=== PATIENT | female | born 1980 | race Caucasian/White ===

== ENCOUNTER 2018-08-22 17:40 | Inpatient (IN) | payer OTHER ==
[2018-08-22] MEDS: Lactated Ringer's 1,000 ML IV SCH ×2 (18:10→20:24)
[2018-08-22] MEDS ORDERED: NS / Oxytocin 40 units/1000ml 1,000 ML IV PRN (18:28)
[2018-08-22] MEDS ORDERED: Lidocaine 1% (PF) 30 ML VIAL SC PRN (18:28)
[2018-08-22] MEDS ORDERED: Docusate 100 MG CAP PO PRN (18:28)
[2018-08-22] MEDS ORDERED: Promethazine HCl 25 MG/ML VIAL IM PRN ×2 (18:28→20:19)
[2018-08-22] MEDS ORDERED: Acetaminophen 500 MG TAB PO PRN (18:28)
[2018-08-22] MEDS ORDERED: Ondansetron PF 4 MG/2 ML Vial IVP PRN ×2 (18:28→20:19)
[2018-08-22] MEDS ORDERED: Ibuprofen 800 MG TAB PO PRN (18:28)
[2018-08-22 18:29] VITALS: BMI 30.7
--- NOTE | 2018-08-22 18:41 | PDOC.FPROB ---
FMR OB H&P: HPI - History of Present Illness Chief Complaint: Contractions Indentification: 38 year old at 40.3 wks History of Present Illness: 38 year old at 40.3 wks by LMP/18.4 wk sono presents with contractions since 8 PM yesterday evening. She denies LoF, vaginal bleeding, vaginal discharge. Endorses movement. 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 denies: fever/chills, weight/appetite/sleep changes Eyes: denies: double vision, scotomas ENT: reports: nasal congestion, rhinorrhea, sore throat Cardiovascular: denies: chest pain, palpitation, edema Respiratory: reports: cough, congestion. denies: shortness of breath Gastrointestinal: denies: abdominal pain, nausea, vomiting, diarrhea Genitourinary (Female): reports: contractions. denies: vaginal discharge, vaginal pain, vaginal bleeding Musculoskeletal: denies: pain Integumentary: denies: rash, lesions Hematologic/Lymphatic: denies: prolonged or excessive bleeding Psychological: reports: depression, anxiety FMR OB H&P: Physical Exam - Physical Exam General: NAD, awake, alert and oriented HEENT: grossly normal vision, grossly normal hearing Neck: supple Heart: pulses present, no edema General: no respiratory distress Abdomen: soft, gravid, non-tender Musculoskeletal: pulses present Neurological: no tremor, no focal deficit Skin: no rash, capillary refill <2 seconds Lymphatic: no unusual bruising or bleeding Psychiatric: intact recent and remote memory, good judgement and insight, normal mood and affect - Pelvic Exam SVE: /-3 at appx 6:30 by nurse Presentation: cephalic FMR OB H&P: A/P - Problem List (1) Post-dates Current Visit: Yes Status: Acute Code(s): O48.0 - POST-TERM (2) Active labor Current Visit: Yes Status: Acute Code(s): [id number] - Assessment and Plan: 38 year old at 40.3 wks presents with contractions 1. Active labor - at 6:30 PM - Admit to L&D - Plan for epidural per patient request - Expectant management - UDS pending - GBS negative 2. Post-dates sIUP - See plan as above 3. MDD - On Zoloft 4. Gerd - On Nexium Disposition: Admit to L&D for expectant management Discussion: Date/Time: 08/22/181837 This H&P was discussed with Dr. Najera who agrees with the above documentation and plan. Faculty Note: Patient seen and Examined. Exam last by me. Epidural now in as of 1929. HX HGSIL and smoking. EGA 40-41 weeks. Await labor progress, states GBS neg Signature: Laurel Medina, PGY-2
[2018-08-22 18:46] LABS: Hemoglobin 11.2 g/dL (12.0-16.0); Mean Corpuscular Hemoglobin 31.6 pg (27.0-31.0); Mean Corpuscular Volume 92.9 fL (78.0-98.0); Mean Platelet Volume 9.2 fL (7.4-10.4); Platelet Count 135 thou/uL (130-400); Red Blood Cell (RBC) Count 3.56 mill/uL (4.20-5.40); White Blood Cell (WBC) Count 12.4 thou/uL (4.8-10.8)
[2018-08-22] MEDS ORDERED: Fentanyl 4 mcg/Bup 0.1% Cadd 100 ML ONE (18:52)
--- NOTE | 2018-08-22 19:12 | PDOC.EVN ---
Event Note - Event Note Event Note: Patient checked at 7:00 PM and noted to be 8/80/0. FHT's 180's with recurrent variables Epidural being placed. Laurel Medina, DO PGY-2
[2018-08-22 19:26] LABS: Syphilis Antibody Nonreactive (Nonreactive); Syphilis Antibody Index 0.05 S/CO (<1.00 Non-Reactive)
[2018-08-22 19:27] LABS: Hep B Surf Ag Non-Reactive S/CO (NonReactive)
[2018-08-22] MEDS ORDERED: NS / Oxytocin 40 units/1000ml 1,000 ML ONE (19:47)
[2018-08-22] MEDS ORDERED: Lidocaine 1% (PF) 30 ML VIAL ONE (19:47)
[2018-08-22] MEDS ORDERED: Misoprostol 200 MCG TAB ONE (19:47)
[2018-08-22] MEDS ORDERED: Naloxone HCl 0.4 mg/ml Vial IVP PRN ×2 (20:19)
[2018-08-22] MEDS ORDERED: ePHEDrine/0.9% NaCl/PF SYRINGE 50 mg/10 ml SLOW IVP PRN (20:19)
[2018-08-22] MEDS ORDERED: Lactated Ringer's 500 ML IV PRN (20:19)
[2018-08-22] MEDS ORDERED: Eucerin (Mineral Oil/Petrolatum,White) 30 gm Jar TOP PRN (20:19)
[2018-08-22] MEDS ORDERED: diphenhydrAMINE 50 MG/ML VIAL IVP PRN (20:19)
[2018-08-22] MEDS ORDERED: Communication Order-Pharmacy FS SCH (20:30)
[2018-08-22] MEDS ORDERED: Fentanyl 4 mcg/Bupivacaine 0.1% Cassette 100 ML EPIDURAL SCH (20:30)
--- NOTE | 2018-08-22 20:33 | PDOC.EVN ---
Event Note - Event Note Event Note: AROM at appx 20:15 with clear fluid noted. Cervical check after rupture . Expectant management. Laurel Medina DO PGY-2 <Laurel Medina - Last Filed: 08/22/18 20:31> - Event Note Event Note: Faculty: will observe for further cervical change; if no progress- may need pitocin. <Dex Najera - Last Filed: 08/22/18 22:05>
[2018-08-22 20:41] LABS: Amphetamine Not Detected (NotDetected); Barbiturates Screen Not Detected (NotDetected); Benzodiazepine Screen Not Detected (NotDetected); Cocaine Metabolite Screen Not Detected (NotDetected); Medtox Control Line Valid? VALID (VALID); Medtox Reader # READER 1; Methadone Not Detected (NotDetected); Methamphetamine Not Detected (NotDetected); Opiate Screen Not Detected (NotDetected); Oxycodone Screen Not Detected (NotDetected); Phencyclidine (PCP) Not Detected (NotDetected); THC/Cannabinoid Screen Not Detected (NotDetected); Tricyclic Screen Not Detected (NotDetected)
[2018-08-22] MEDS ORDERED: NS w/ Oxytocin 10 units 500 ML ONE (22:36)
[2018-08-22] MEDS ORDERED: NS w/ Oxytocin 10 units 500 ML IV SCH (23:00)
[2018-08-23] MEDS ORDERED: Fentanyl 4 mcg/Bup 0.1% Cadd 100 ML ONE (00:54)
--- NOTE | 2018-08-23 01:47 | PDOC.OPDEL ---
OB Operative/Delivery Note Delivery Dr/Surgeon: Simeon Montalvo/Carol Assist: Faculty: Reinaldo Pre-Delivery Diagnosis: active labor Procedure/Post Delivery Dx: spontaneous vaginal delivery Anesthesia: epidural - Findings A - 1 min: 9 - 5 min: 9 - Additional Findings/Plan Placenta delivered: spontaneous (Gordo) Repaired Obstetrical Laceration: 1st degree (perineal, no sam for repair) Estimated blood loss: 100-200 (QBL pending) Compilations/Other Findings: Counts correct There was no nuchal cord Placenta delievered at approx 0142 3VC Post delivery plan: routine recovery
[2018-08-23] MEDS ORDERED: NS / Oxytocin 40 units/1000ml 1,000 ML ONE (02:38)
[2018-08-23] MEDS ORDERED: NS / Oxytocin 40 units/1000ml 1,000 ML IV SCH (04:29)
[2018-08-23] MEDS ORDERED: Lanolin Ointment 7 GM TUBE TOP PRN (04:29)
[2018-08-23] MEDS ORDERED: Milk Of Magnesia 30 ML UDCUP PO PRN (04:29)
[2018-08-23] MEDS ORDERED: Bisacodyl 10 MG SUPP PR PRN (04:29)
[2018-08-23] MEDS ORDERED: Adacel (T-DAP) 0.5 ML VIAL IM ONE (04:29)
[2018-08-23] MEDS ORDERED: Ondansetron PF 4 MG/2 ML Vial IVP SCH (06:00)
[2018-08-23] MEDS: Ibuprofen 800 MG TAB PO SCH ×3 (06:20→21:37)
[2018-08-23] MEDS ORDERED: Ondansetron PF 4 MG/2 ML Vial IVP PRN (06:24)
[2018-08-23] MEDS: Ferrous Sulfate 325 MG TAB PO SCH ×2 (09:32→18:00)
[2018-08-23] MEDS: Prenatal Vitamin 1 TAB PO SCH (09:32)
[2018-08-23] MEDS: Acetaminophen 325 MG TAB PO PRN ×2 (09:33→21:37)
[2018-08-23] MEDS: guaiFENesin ER 600 MG TAB PO SCH ×2 (09:33→21:37)
[2018-08-23] MEDS: Docusate Calcium (SURFAK) 240 MG CAP PO SCH ×2 (09:33→21:37)
[2018-08-24 01:27] VITALS: BP 109/53; TEMP 97.6
[2018-08-24] MEDS: Acetaminophen 325 MG TAB PO PRN (04:10)
[2018-08-24] MEDS: Ibuprofen 800 MG TAB PO SCH ×2 (06:14→15:06)
--- NOTE | 2018-08-24 07:05 | PDOC.PP ---
Post Progress Note Post Day #: 1 Subjective: Patient reports coughing and nasal congestion. Denies fever. Bottle feeding. Plans to follow up with Dr. Billings for PP check. Undecided on premix operator concentrate. PO intake tolerated: yes Flatus: yes Ambulation: yes Vital Signs (12 hours) Temp Pulse Resp BP Pulse Ox 08/24/18 01:19 97.6 F 85 18 109/53 L 96 08/23/18 20:15 97.7 F 84 20 120/57 L 99 Weight Weight 91.626 kg - Physical Examination General: NAD Cardiovascular: RRR Respiratory: clear to auscultation bilaterally (upper airway congestion) Abdominal: + bowel sounds Extremities: negative homans (B) Neurological: no gross focal deficits Psychiatric: A&Ox3, normal affect Result Diagrams: 08/22/18 18:36 Additional Labs: Post Labs Blood Type O POSITIVE 08/22/18 18:36 Hep Bs Antigen Non-Reactive S/CO (NonReactive) 08/22/18 18:36 (1) Term delivered Code(s): O80 - ENCOUNTER FOR FULL-TERM UNCOMPLICATED DELIVERY Status: Acute - Assessment/Plan 31 yo now delivered TAGA infant @ 40.3 wks by @ 0134 on . Apgars 9/9. - Routine PP care - Bottle feeding - PP H/H - Undecided contraception - Plans to follow up with Dr. Billings for PP check - May consider d/c later today or tomorrow morning pending status of baby
[2018-08-24] MEDS: Ferrous Sulfate 325 MG TAB PO SCH (08:19)
[2018-08-24] MEDS: Docusate Calcium (SURFAK) 240 MG CAP PO SCH (08:22)
[2018-08-24] MEDS: Prenatal Vitamin 1 TAB PO SCH (08:22)
[2018-08-24] MEDS: guaiFENesin ER 600 MG TAB PO SCH (09:07)
[2018-08-24] MEDS ORDERED: Sodium Chloride 0.9% (PF) 10 ML VIAL ONE (14:43)
[2018-08-24] MEDS ORDERED: Bupivacaine HCl 0.5%/Epinephrine 1:200,000/PF 30 ml Vial ONE (14:43)
== END 2018-08-24 17:50 | disposition home or self-care (01) | DRG 807 ==
LOC: L&D/OP 17:40 → L&D 20:19 → 3SW 08-23 04:22
PROVIDERS: ADMIT Obstetrics & Gynecology; ATTEND Obstetrics & Gynecology
PROC: 10907ZC Drainage of Amniotic Fluid, Therapeutic from Products of Conception, Via Natural or Artificial Opening (ICD-10-PCS; principal; 2018-08-22)
PROC: 10E0XZZ Delivery of Products of Conception, External Approach (ICD-10-PCS; 2018-08-22)
DX: O48.0 Post-term pregnancy (principal); Z37.0 Single live birth; Z3A.40 40 weeks gestation of pregnancy; O76 Abnormality in fetal heart rate and rhythm complicating labor and delivery; O99.344 Other mental disorders complicating childbirth; O99.62 Diseases of the digestive system complicating childbirth; K21.9 Gastro-esophageal reflux disease without esophagitis
CPT/HCPCS: 36415; 51702; 80306; 85027; 86780; 86850; 86900; 86901; 87340; 90471; 90715; 90732; 94640; 99285; G0009; J0670; J2001; J7620

== ENCOUNTER 2019-03-25 17:34 | Emergency (ER) | payer OTHER | END 2019-03-25 18:30 | disposition home or self-care (01) | LOC: ERS 17:34 | DX: Z02.89 Encounter for other administrative examinations (principal); F17.210 Nicotine dependence, cigarettes, uncomplicated | CPT/HCPCS: 99282 ==

== ENCOUNTER 2021-11-08 13:22 | Emergency (ER) | payer OTHER ==
[2021-11-09 01:11] LABS: SARS-CoV-2 PCR by NAA DETECTED (NotDetected)
== END 2021-11-08 14:35 | disposition home or self-care (01) ==
LOC: ERS 13:22
DX: U07.1 COVID-19 (principal); J45.909 Unspecified asthma, uncomplicated; F17.210 Nicotine dependence, cigarettes, uncomplicated
CPT/HCPCS: 99284; U0003; U0005

== ENCOUNTER 2022-04-21 01:42 | Emergency (ER) | payer SELFPAY ==
[2022-04-21] MEDS ORDERED: Lidocaine 1% w/Epinephrine 1:100K 20 ML VIAL ONE (01:49)
[2022-04-21] MEDS ORDERED: Boostrix 0.5 ML (Tdap) VIAL ONE (01:54)
[2022-04-21] MEDS ORDERED: Bacitracin 1 PK ONE (02:21)
== END 2022-04-21 02:31 | disposition home or self-care (01) ==
LOC: ERS 01:42
DX: S51.811A Laceration without foreign body of right forearm, initial encounter (principal); J45.909 Unspecified asthma, uncomplicated; C53.9 Malignant neoplasm of cervix uteri, unspecified; F17.210 Nicotine dependence, cigarettes, uncomplicated; X99.1XXA Assault by knife, initial encounter; Z23 Encounter for immunization; Z87.19 Personal history of other diseases of the digestive system
CPT/HCPCS: 12002; 90471; 90715

== ENCOUNTER 2022-09-09 12:07 | Emergency (ER) | payer SELFPAY ==
[~2022-09-09 12:07] MED LIST: Iopamidol-370 76% 500 ML 1 ML ONE
[2022-09-09 12:52] LABS: #Eosinphils 0.2 thou/uL (0.0-0.7); #Monocytes 0.5 thou/uL (0.11-0.59); #Neutrophils 3.9 thou/uL (1.40-6.50); %Basophils 0.5 % (0.0-1.0); %Eosinophils 2.7 % (0.0-10.0); %Monocytes 7.5 % (0.0-10.0); %Neutrophils 59.2 % (42.0-75.0); Hemoglobin 11.8 g/dL (12.0-16.0); Mean Corpuscular HGB CONC 33.1 g/dL (32.0-36.0); Mean Corpuscular Hemoglobin 29.9 pg (27.0-31.0); Mean Corpuscular Volume 90.4 fl (78.0-98.0); Mean Platelet Volume 8.9 fL (7.4-10.4); Platelet Count 217 thou/uL (130-400); Red Blood Cell (RBC) Count 3.95 mill/uL (4.20-5.40); White Blood Cell (WBC) Count 6.6 thou/uL (4.8-10.8)
[2022-09-09 13:05] LABS: ALT (SGPT) 9 U/L (8-55); AST (SGOT) 9 U/L (5-34); Albumin 3.8 g/dL (3.5-5.0); Alkaline Phosphatase 74 U/L (40-110); Anion Gap 10 mmol/L (10-20); BUN (Urea Nitrogen) 14 mg/dL (7.0-18.7); Bilirubin, Total 0.3 mg/dL (0.2-1.2); Calc. Creatinine Clearance 0 mL/min (70-130); Calcium 9.2 mg/dL (7.8-10.44); Carbon Dioxide 27 mmol/L (22-29); Chloride 107 mmol/L (98-107); Estimated GFR 93; Globulin 2.6 g/dL (2.4-3.5); Glucose 98 mg/dL (70-105); Lipase 25 U/L (8-78); Potassium 4.1 mmol/L (3.5-5.1); Protein, Total 6.4 g/dL (6.0-8.3); Sodium 140 mmol/L (136-145)
[2022-09-09 14:02] LABS: Bacteria/HPF None Seen HPF (None Seen); Bilirubin Negative (Negative); Blood, Urine 2+ (Negative); Clarity Clear (Clear); Glucose, Urine (Dipstick) Normal (Negative); Ketone, Urine Negative (Negative); Leukocyte Negative Leu/uL (Negative); Nitrite Negative (Negative); Protein, Urine (Dipstick) Negative (Neg-Trace); RBC/HPF 0-3 HPF (0-3); Specific Gravity, Urine 1.015 (1.002-1.036); Squamous Epithelial 0-3 HPF (0-3); Urobilinogen Normal mg/dL (Less than 2); WBC/HPF 0-3 HPF (0-3)
[2022-09-09 14:05] LABS: Pregnancy Test - Urine (BHCG) Negative (Negative); Pregu Control Background? CLEAR/WHITE (CLR/WHITE); Pregu Control Bar Appear? YES (CONTROL BAR); Specific Gravity 1.015 (1.002-1.036)
== END 2022-09-09 16:05 | disposition home or self-care (01) ==
LOC: ERS 12:07
DX: N83.8 Other noninflammatory disorders of ovary, fallopian tube and broad ligament (principal); F17.210 Nicotine dependence, cigarettes, uncomplicated
CPT/HCPCS: 74177; 80053; 81003; 81015; 81025; 83690; 85025; Q9967

== ENCOUNTER 2024-01-13 22:46 | Emergency (ER) | payer SELFPAY ==
[2024-01-13 23:32] LABS: #Eosinphils 0.3 thou/uL (0.0-0.7); #Monocytes 0.6 thou/uL (0.11-0.59); #Neutrophils 5.3 thou/uL (1.40-6.50); %Basophils 0.4 % (0.0-1.0); %Eosinophils 3.3 % (0.0-10.0); %Monocytes 6.6 % (0.0-10.0); %Neutrophils 63.5 % (42.0-75.0); Hematocrit 38.5 % (36.0-47.0); Hemoglobin 12.4 g/dL (12.0-16.0); Mean Corpuscular HGB CONC 32.2 g/dL (32.0-36.0); Mean Corpuscular Hemoglobin 28.6 pg (27.0-31.0); Mean Corpuscular Volume 88.7 fl (78.0-98.0); Mean Platelet Volume 10.3 fL (7.4-10.4); Platelet Count 263 10x3/uL (130-400); RBC Distribution Width 13.7 % (11.5-14.5); Red Blood Cell (RBC) Count 4.34 mill/uL (4.20-5.40); White Blood Cell (WBC) Count 8.3 10x3/uL (4.8-10.8)
[2024-01-13 23:48] LABS: Acetaminophen Less than 10 mcg/mL (10.0-30.0); Alcohol Less than 10.0 mg/dL (Less than 10); Salicylate Less than 8.0 mg/dL (15.0-30.0)
[2024-01-13 23:50] LABS: ALT (SGPT) 10 U/L (8-55); AST (SGOT) 11 U/L (5-34); Albumin 3.9 g/dL (3.5-5.0); Alcohol Less than 10.0 mg/dL (Less than 10); Alkaline Phosphatase 74 U/L (40-110); Anion Gap 10 mmol/L (10-20); BUN (Urea Nitrogen) 12 mg/dL (7.0-18.7); Bilirubin, Total 0.3 mg/dL (0.2-1.2); Calc. Creatinine Clearance 0 mL/min (70-130); Carbon Dioxide 25 mmol/L (22-29); Chloride 108 mmol/L (98-107); Estimated GFR 103; Glucose 109 mg/dL (70-105); Potassium 3.6 mmol/L (3.5-5.1); Protein, Total 6.9 g/dL (6.0-8.3); Sodium 139 mmol/L (136-145)
[2024-01-14 01:32] LABS: Amphetamine Detected (NotDetected); Barbiturates Screen Not Detected (NotDetected); Benzodiazepine Screen Not Detected (NotDetected); Cocaine Metabolite Screen Not Detected (NotDetected); Methadone Not Detected (NotDetected); Methamphetamine Detected (NotDetected); Opiate Screen Not Detected (NotDetected); Oxycodone Screen Not Detected (NotDetected); Phencyclidine (PCP) Not Detected (NotDetected); THC/Cannabinoid Screen Not Detected (NotDetected); Tricyclic Screen Not Detected (NotDetected)
[2024-01-14 01:36] LABS: Pregnancy Test - Urine (BHCG) Negative (Negative)
[2024-01-14 01:37] LABS: Pregu Control Background? CLEAR/WHITE (CLR/WHITE); Pregu Control Bar Appear? YES (CONTROL BAR); Specific Gravity 1.011 (1.002-1.036)
== END 2024-01-14 11:13 ==
LOC: ERS 22:46
DX: S05.11XA Contusion of eyeball and orbital tissues, right eye, initial encounter (principal); R45.851 Suicidal ideations; F17.210 Nicotine dependence, cigarettes, uncomplicated; W22.8XXA Striking against or struck by other objects, initial encounter
CPT/HCPCS: 36415; 80053; 80306; 80307; 81025; 85025; 93005

== ENCOUNTER 2024-05-19 20:14 | Emergency (ER) | payer OTHER, SELFPAY ==
[2024-05-19] MEDS ORDERED: Boostrix 0.5 ML (Tdap) VIAL (>/=7 yrs of age) ONE (20:59)
[2024-05-19 21:19] LABS: #Basophils 0.03 10x3/uL (0.0-0.2); %Basophils 0.2 % (0.0-1.0); %Eosinophils 2.4 % (0.0-10.0); %Lymphocytes 18.1 % (21.0-51.0); %Monocytes 6.4 % (0.0-10.0); %Neutrophils 72.6 % (42.0-75.0); Hematocrit 40.9 % (36.0-47.0); Hemoglobin 13.1 g/dL (12.0-16.0); Mean Corpuscular Volume 90.7 fL (78.0-98.0); Mean Platelet Volume 10.1 fL (7.4-10.4); Platelet Count 308 10x3/uL (130-400); RBC Distribution Width 14.6 % (11.5-14.5); Red Blood Cell (RBC) Count 4.51 mill/uL (4.20-5.40)
[2024-05-19 21:41] LABS: ALT (SGPT) 11 U/L (8-55); AST (SGOT) 13 U/L (5-34); Acetaminophen Less than 10 mcg/mL (10.0-30.0); Alcohol Less than 10.0 mg/dL (Less than 10); Alkaline Phosphatase 76 U/L (40-110); Anion Gap 8 mmol/L (10-20); BUN (Urea Nitrogen) 13 mg/dL (7.0-18.7); Bilirubin, Total 0.2 mg/dL (0.2-1.2); CK (CPK) 93 U/L (29-168); Calc. Creatinine Clearance 0 mL/min (70-130); Calcium 9.7 mg/dL (7.8-10.44); Carbon Dioxide 28 mmol/L (22-29); Chloride 111 mmol/L (98-107); Estimated GFR 93; Globulin 3.4 g/dL (2.4-3.5); Glucose 99 mg/dL (70-105); Potassium 3.9 mmol/L (3.5-5.1); Protein, Total 7.4 g/dL (6.0-8.3); Salicylate Less than 8.0 mg/dL (15.0-30.0); Sodium 143 mmol/L (136-145)
[2024-05-19 22:07] LABS: Bilirubin Negative (Negative); Blood, Urine Negative (Negative); Calcium Oxalate Crystals 4+ HPF (None Seen); Clarity Extra Turbid (Clear); Glucose, Urine (Dipstick) Normal (Negative); Ketone, Urine Negative (Negative); Leukocyte 500 Leu/uL (Negative); Nitrite Negative (Negative); Protein, Urine (Dipstick) 30 mg/dL (Neg-Trace); Specific Gravity, Urine 1.023 (1.002-1.036); Squamous Epithelial 21-50 HPF (0-3); WBC/HPF Greater than 50 HPF (0-3)
[2024-05-19 22:10] LABS: RBC/HPF 0-3 HPF (0-3)
[2024-05-19 22:11] LABS: Amphetamine Detected (NotDetected); Bacteria/HPF Rare-Few HPF (None Seen); Barbiturates Screen Not Detected (NotDetected); Benzodiazepine Screen Not Detected (NotDetected); Cocaine Metabolite Screen Not Detected (NotDetected); Methadone Not Detected (NotDetected); Methamphetamine Detected (NotDetected); Opiate Screen Not Detected (NotDetected); Oxycodone Screen Not Detected (NotDetected); Phencyclidine (PCP) Not Detected (NotDetected); THC/Cannabinoid Screen Not Detected (NotDetected); Tricyclic Screen Not Detected (NotDetected)
[2024-05-19 22:12] LABS: Pregnancy Test - Urine (BHCG) Negative (Negative); Pregu Control Background? CLEAR/WHITE (CLR/WHITE); Pregu Control Bar Appear? YES (CONTROL BAR); Specific Gravity 1.023 (1.002-1.036); Urine Culture Reflex Yes Yes
== END 2024-05-20 09:59 ==
LOC: ERS 20:14
DX: R45.851 Suicidal ideations (principal); N90.810 Female genital mutilation status, unspecified; J45.909 Unspecified asthma, uncomplicated; F17.210 Nicotine dependence, cigarettes, uncomplicated; Z23 Encounter for immunization
CPT/HCPCS: 36415; 80053; 80306; 80307; 81001; 81025; 82550; 84443; 85025; 87086; 90471; 90715; 93005